=== PATIENT | male | born 2000 | race Caucasian/White ===

== ENCOUNTER 2020-05-11 21:06 | Emergency (ER) | payer OTHER ==
[~2020-05-11] VITALS: Ht 182.9 cm; Wt 90.7 kg
[~2020-05-11 21:06] MED LIST: ANTIFUNGAL15 G1; IBUPROFEN 800800 M1 PO; TOBRAMYCIN SULFA5 M1 OP; ZPAK PO; ZYRTEC10 M5 PO
[2020-05-11 22:21] VITALS: BP 122/63
== END 2020-05-11 22:21 | disposition home or self-care (01) ==
LOC: M.ERS 21:06
DX: S61.210A Laceration without foreign body of right index finger without damage to nail, initial encounter (principal); Z88.0 Allergy status to penicillin; W26.8XXA Contact with other sharp object(s), not elsewhere classified, initial encounter; Y93.89 Activity, other specified; Y92.89 Other specified places as the place of occurrence of the external cause; Y99.0 Civilian activity done for income or pay